=== PATIENT | female | born 1945 | race Caucasian/White ===

== ENCOUNTER → 2018-02-25 | Outpatient (CLI) | payer OTHER ==
[~2018-02-25] MED LIST: ASPI1CHW4 CHEW; AZOP1SUS EACH EYE; ESTR0.5T PO; HYDR-3583 PO; MOBI15TA PO; TIMO0.255 EACH EYE; TRAM50TA PO; VITA2000 PO; WALKER/ADULT/FO1 MIS; XARE10TA PO; ZOLP5TAB3 PO
== END ==
LOC: CPRE 11:16
PROVIDERS: ATTEND Orthopaedic Surgery Orthopaedic Trauma
DX: M79.609 Pain in unspecified limb (principal); Z96.60 Presence of unspecified orthopedic joint implant; Z79.01 Long term (current) use of anticoagulants

== ENCOUNTER 2018-03-07 05:07 | Inpatient (IN) | payer OTHER, MEDICARE ==
[~2018-03-07] VITALS: Ht 170.2 cm; Wt 80.0 kg
[~2018-03-07 05:07] MED LIST changes: -ASPI1CHW4 CHEW; -ESTR0.5T PO; -HYDR-3583 PO; -TIMO0.255 EACH EYE; -WALKER/ADULT/FO1 MIS; -XARE10TA PO; -ZOLP5TAB3 PO
[2018-03-07] MEDS ORDERED: DEXAMETHASONE SOD PHOS 20 MG/5 ML VIAL IV PUSH ONE (05:30)
[2018-03-07] MEDS ORDERED: GABAPENTIN 300 MG CAP PO ONE (05:30)
[2018-03-07] MEDS ORDERED: LACTATED RINGER'S 1000 ML IV PRN (05:30)
[2018-03-07] MEDS ORDERED: VANCOMYCIN 1000 MG/NS 250 ML (for <70 kg) IV SCH ×2 (05:30)
[2018-03-07] MEDS ORDERED: POVIDONE IODINE 5% (ANTISEPSIS KIT) 4 APPLICATIONS EACH NARE PRN (05:30)
[2018-03-07] MEDS ORDERED: ONDANSETRON HCL 4 MG/2 ML VIAL IV PUSH ONE (05:30)
[2018-03-07] MEDS ORDERED: BUPIVACAINE-EPI PF 0.25% INJ 20 ML, BUPIVACAINE LIPOSO PF 1.3% INJ 20 ML in SODIUM CHLO... P-ARTICULR SCH (05:30)
[2018-03-07] MEDS ORDERED: ceFAZolin 2 GM PREMIX 50 ML IV SCH (05:30)
[2018-03-07] MEDS ORDERED: METOPROLOL TARTRATE 25 MG TAB PO PRN (05:30)
[2018-03-07] MEDS ORDERED: CHLORHEXIDINE GLUCONATE 4% SOLN 120 ML BTL TOPICAL SCH (05:30)
[2018-03-07] MEDS ORDERED: FAMOTIDINE 20 MG/2 ML VIAL IV PUSH ONE (05:30)
[2018-03-07] MEDS ORDERED: CELECOXIB 200 MG CAP PO ONE (05:30)
[2018-03-07] MEDS ORDERED: SODIUM CHLORID 0.9% 500 ML IV PRN (05:30)
[2018-03-07] MEDS ORDERED: TRANEXAMIC ACID IV SCH (05:30)
[2018-03-07] MEDS ORDERED: CHLORHEXIDINE GLUCONATE 2 % 1 PACK (2 CLOTHS) TOPICAL PRN (05:30)
[2018-03-07] MEDS ORDERED: SODIUM CHLORIDE 0.9% IV SCH (05:30)
[2018-03-07] MEDS ORDERED: ACETAMINOPHEN 1000 MG/100 ML 100 ML IV ONE (05:30)
[2018-03-07] MEDS ORDERED: MIDAZOLAM HCL 2 MG/2 ML VIAL ONE (06:22)
[2018-03-07] MEDS ORDERED: ACETAMINOPHEN 1000 MG/100 ML 0 ML IV ONE (06:22)
[2018-03-07] MEDS ORDERED: FAMOTIDINE 20 MG/2 ML VIAL ONE (06:22)
[2018-03-07] MEDS ORDERED: APREPITANT 40 MG CAP ONE (06:35)
[2018-03-07] MEDS ORDERED: KETAMINE HCL 50 MG/5 ML SYRINGE ONE (06:39)
[2018-03-07] MEDS ORDERED: GENTAMICIN SULFATE 80 MG/2 ML VIAL ONE (06:53)
[2018-03-07] MEDS ORDERED: TOBRAMYCIN 1200 MG VIAL (for ortho/sterile core) OTHER ONE (08:31)
[2018-03-07] MEDS ORDERED: VANCOMYCIN HCL 1000 MG VIAL ONE (08:32)
[2018-03-07] MEDS ORDERED: HYDROmorphone HCL PF 0.5 MG/0.5 ML SYRINGE IV PUSH PRN (09:30)
[2018-03-07] MEDS ORDERED: diphenhydrAMINE HCL 25 MG CAP PO PRN (09:30)
[2018-03-07] MEDS ORDERED: NALOXONE HCL 0.4 MG/ML AMP IV PUSH PRN (09:30)
[2018-03-07] MEDS ORDERED: Post-op Orders (for Pharmacy) XX ONE (09:30)
[2018-03-07] MEDS ORDERED: ACETAMINOPHEN/HYDROcodone 325 MG/7.5 MG TAB PO PRN (09:30)
--- NOTE | 2018-03-07 09:33 | PD.OP ---
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 My P.A. presence was necessary throughout this case for the manipulation and positioning of the surgical extremity. My P.A. was assisting me throughout the duration of this procedure. The skill set of a physician wet process miller head assistant was medically necessary to complete this procedure. During the surgical case the rn surgical was working at the back table and the physician wet process miller head assistant was directly assisting me. Operation and Findings: Plan of activity: 50% weightbearing IMPLANTS USED DePuy size 58 revision cup and a 36+5 metal head. DETAILS OF PROCEDURE: This patient has a long history of hip pain. Patient previously had a revision of her left acetabular cup. The cup appeared to be loose again. Patient was having severe pain. The patient wished to proceed with surgery and informed consent was obtained. Operative site was marked. I discussed both posterior approach and anterior approach with patient decision was made for posterior approach. Patient was brought to OR and placed on OR table. IV sedation and general anesthesia was administered by anesthesiologist. Patient was positioned lateral on the operating room table. IV antibiotics were held until after cultures were obtained. Time-out procedure was performed. The operative hip and leg were prepped with alcohol followed by Hibiclens and draped in the usual sterile fashion. Clean Air Suite was used for this procedure. The procedure began with a 8-inch incision over the posterolateral thigh. Incision was made through previous scar.. Subcutaneous tissue was dissected with Bovie. The fascia of the iliotibial band was incised. Gluteus muscle was split in line with fibers. Charnley retractor was placed. There was dense scar tissue from 2 prior surgeries. Piriformis and external rotator muscles were identified and then released from the posterior femur. The hip capsule was incised and sutures were placed to help retract the capsule. At this point the total hip components were visualized. The hip was now dislocated. Using a bone tamp the head was removed. The stem was evaluated and appeared to be stable. At this point the liner was removed from the acetabular shell using an osteotome. Using appropriate screwdrivers the 2 screws were now removed. The acetabular shell was loose. Using curved osteotomes the acetabular shell was removed. At this point attention was turned to placement of the acetabular shell. The patient had relatively good peripheral bone stock around the acetabulum. The anterior and posterior gilbert were very thin. A small hole was drilled into the medial wall to measure the depth of bone. At this point the acetabulum was gently reamed with a size 56 reamer. The acetabulum was then gently reamed with a 57 and 58 reamer. A 58 trial cup was now placed. Appropriate anteversion was confirmed. The cup had stable fit. Because of the thin anterior and posterior gilbert, I did not feel that it was possible to go to a larger size. At this point a size 58 revision cup was open. The cup was impacted in appropriate version. The cup was stable upon impaction. 3 dome screws were now placed. 2 additional peripheral screws were placed. At this point a +4, 10 acetabular liner was opened. The liner was impacted into the shell. A trial head was now placed. A trial 36+5 head was found to be appropriate. The hip was found to have excellent stability with good range of motion. The leg lengths were measured under clinically and found to be equal compared to preoperatively. The trial femoral head was removed and replaced with a 36+5 metal head. The hip was again reduced. The wound was thoroughly irrigated. Hip capsule, external rotators, and iliotibial band was closed with #1 Vicryl. A drain was placed deep into the wound. Subcutaneous tissue was closed with 3-0 Vicryl and the skin was closed with paul and Dermabond skin closure. The capsule layers were injected with a mixture of saline and bupivicaine. Dressings were applied. The patient was transferred to Recovery Room in stable condition. Pritesh Hi MD March 07, 2018 09:33
[2018-03-07] MEDS ORDERED: *HYDROmorphone PF 0.5 MG/0.5 ML PERIprocedure ONLY ONE ×3 (10:04→11:46)
[2018-03-07] MEDS ORDERED: DO NOT ADM ANY ANTICOAGULANT DRUGS PRN (10:30)
--- NOTE | 2018-03-07 12:11 | RADRPT ---
EXAM DATE: 03/07/2018 11:59 AM EDT AGE/SEX: 72 years / Female INDICATIONS: Post op hip surgery CLINICAL DATA: This is the patient's subsequent encounter. Patient reports that signs and symptoms h ave been present for 1 day and indicates a pain score of Nonresponsive. MEDICAL/SURGICAL HISTORY: None. None. COMPARISON: No prior exams available for comparison. FINDINGS: Status post placement of a left hip prosthesis. There is good position and alignment of the prosthesi s. The bony structures are grossly intact. CONCLUSION: Good position and alignment on this postoperative study. Electronically signed by: Robert Tucker MD 03/07/2018 12:09 PM EDT
[2018-03-07] MEDS: ACETAMINOPHEN/HYDROcodone 325 MG/10 MG TAB PO PRN ×2 (12:12→15:48)
[2018-03-07] MEDS: ceFAZolin 2 GM PREMIX 50 ML IV SCH ×2 (13:04→20:46)
--- NOTE | 2018-03-07 14:44 | RADRPT ---
EXAM DATE: 03/07/2018 2:38 PM EDT AGE/SEX: 72 years / Female INDICATIONS: Left posterior hip revision. CLINICAL DATA: This is the patient's initial encounter. Patient reports that signs and symptoms have been present for 1 day and indicates a pain score of Nonresponsive. MEDICAL/SURGICAL HISTORY: Non-responsive. Non-responsive. COMPARISON: [facility], CT HIP W/O CONTRAST, LEFT, 01/17/2018. . FINDINGS: Single view of the left hip demonstrates a prosthesis with acetabular and femoral components. The pro sthetic components are well seated in satisfactory alignment. The bones remain intact without evidenc e of acute fracture. CONCLUSION: Satisfactory postoperative appearance of the left hip following revision of a left hip prosthesis. Electronically signed by: Leonard Lorenzo MD 03/07/2018 2:43 PM EDT
[2018-03-07] MEDS: ONDANSETRON HCL 4 MG/2 ML VIAL IVP PRN (15:48)
[2018-03-07 16:00] VITALS: BP 142/81; PULSE 73; RESP 18; TEMP 97.4; O2SAT 100
[2018-03-07] MEDS ORDERED: ePHEDrine/NS 25 MG/5 ML SYRINGE IV ONE (19:04)
[2018-03-07] MEDS ORDERED: GLYCOPYRROLATE 1 MG/5 ML SYRINGE IV PUSH ONE (19:04)
[2018-03-07] MEDS ORDERED: LACTATED RINGER'S 1000 ML INJ 1,000 ML IV ONE (19:04)
[2018-03-07] MEDS ORDERED: PROPOFOL 200 MG/20 ML AMP IV ONE (19:04)
[2018-03-07] MEDS ORDERED: PHENYLEPH/NS 1000 MCG/10 ML SYR IV ONE (19:04)
[2018-03-07] MEDS ORDERED: NEOSTIGMINE 5 MG/5 ML SYRINGE IV PUSH ONE (19:04)
[2018-03-07] MEDS ORDERED: ROCURONIUM INJ 50 MG/5 ML SYRINGE IV PUSH ONE (19:04)
[2018-03-07] MEDS ORDERED: LIDOCAINE HCL 1% PF 5 ML SYRINGE OTHER ONE (19:04)
[2018-03-07 19:19] VITALS: BP 124/60; PULSE 68; RESP 18; TEMP 97.6; O2SAT 96
[2018-03-07] MEDS: VANCOMYCIN INJ 1,000 MG in SODIUM CHLOR 0.9% 250 ML INJ 250 ML IV SCH (20:47)
[2018-03-07] MEDS ORDERED: ZOLP5TAB3 PO (20:54)
[2018-03-07 23:11] VITALS: BP 108/62; PULSE 83; RESP 18; TEMP 98.1; O2SAT 95
[2018-03-08] MEDS: ceFAZolin 2 GM PREMIX 50 ML IV SCH ×4 (02:56→21:03)
[2018-03-08] MEDS: ACETAMINOPHEN/HYDROcodone 325 MG/10 MG TAB PO PRN ×5 (04:00→21:02)
[2018-03-08 04:10] VITALS: BP 108/53; PULSE 67; RESP 17; TEMP 97.5; O2SAT 96
[2018-03-08 05:25] LABS: HEMATOCRIT 28.3 % (35.0-46.0); HEMOGLOBIN 9.5 GM/DL (11.6-15.3)
--- NOTE | 2018-03-08 06:47 | PD.ORT.PN ---
Subjective Subjective Remarks POD 1 s/p Revision left ALLAN doing well. pain controlled. no new complaints. out of bed with walker yesterday Objective Vitals Vital Signs Date Time Temp Pulse Resp B/P (MAP) Pulse Ox O2 Delivery O2 Flow Rate FiO2 03/08/18 04:10 97.5 67 17 108/53 (71) 96 03/07/18 23:11 98.1 83 18 108/62 (77) 95 03/07/18 19:19 97.6 68 18 124/60 (81) 96 03/07/18 18:54 Room Air 03/07/18 16:00 97.4 73 18 142/81 (101) 100 03/07/18 12:00 63 16 117/69 (85) 99 Room Air 03/07/18 11:00 58 16 116/72 (87) 99 Room Air 03/07/18 10:45 65 16 114/56 (75) 96 Room Air 03/07/18 10:30 54 16 112/55 (74) 94 Room Air 03/07/18 10:15 51 16 104/57 (73) 95 Room Air 03/07/18 10:00 58 16 118/58 (78) 95 Room Air 03/07/18 09:48 97.7 72 16 129/71 (90) 100 Simple Mask 8 I/O 03/07/18 03/07/18 03/07/18 03/08/18 03/08/18 03/08/18 07:00 15:00 23:00 07:00 15:00 23:00 Intake Total 1660 ml 870 ml Output Total 650 ml 1750 ml Balance 1010 ml -880 ml Intake Oral 60 ml 720 ml IV Total 150 ml Other 1600 ml Output Urine Total 400 ml 1750 ml Estimated Blood Loss 250 ml # Bowel Movements 0 Result Diagram: 03/08/18 0450 Imaging Last 24 hours Impressions Hip and Pelvis X-Ray 03/07/18 0921 Signed Impressions: CONCLUSION: Good position and alignment on this postoperative study. Objective Remarks LLE: dressings clean and dry. intact. +CKS. nvi distally Assessment & Plan Assessment and Plan 1) Left Revision ALLAN - POD 1 -50%WB -posterior hip precautions -CKS at all times -maintain dressing on hip unless saturated. plan for first dressing change on POD 7 -plan for home with [facility] on sat/sun pending progress -f/u with [facility] or [facility] in 2 weeks Troy Courtney PA/Chemistry Quality Control Analyst PA March 08, 2018 06:47
[2018-03-08] MEDS ORDERED: XARE10TA PO (06:50)
[2018-03-08] MEDS ORDERED: WALKER/ADULT/FO1 MIS (06:50)
[2018-03-08] MEDS ORDERED: HYDR-3583 PO (06:50)
[2018-03-08] MEDS ORDERED: ASPI1CHW4 CHEW (06:50)
[2018-03-08] MEDS: CHOLECALCIFEROL (VIT D3) 1000 UNIT TAB PO SCH (07:43)
[2018-03-08] MEDS: ENOXAPARIN SODIUM 30 MG/0.3 ML SYRINGE SQ SCH ×2 (07:43→21:02)
[2018-03-08 08:00] VITALS: BP 133/58; PULSE 66; RESP 18; TEMP 98.2; O2SAT 99
[2018-03-08] MEDS ORDERED: BRINZOLAMIDE OPTH EACH EYE SCH (09:00)
[2018-03-08] MEDS: VANCOMYCIN INJ 1,000 MG in SODIUM CHLOR 0.9% 250 ML INJ 250 ML IV SCH (09:29)
[2018-03-08 11:50] VITALS: BP 99/57; PULSE 60; RESP 18; TEMP 97.9; O2SAT 96
[2018-03-08 16:22] VITALS: BP 109/56; PULSE 57; RESP 18; TEMP 97.2; O2SAT 94
[2018-03-08] MEDS: DOCUSATE SODIUM 100 MG CAP PO SCH (21:02)
[2018-03-08 23:16] VITALS: BP 119/58; PULSE 64; RESP 18; TEMP 98.3; O2SAT 94
[2018-03-08 23:35] VITALS: BP 131/60; PULSE 66; RESP 18; TEMP 98.3; O2SAT 95
[2018-03-09] MEDS: ACETAMINOPHEN/HYDROcodone 325 MG/10 MG TAB PO PRN ×6 (01:16→21:01)
--- NOTE | 2018-03-09 07:34 | PD.ORT.PN ---
Subjective Subjective Remarks pt complains of post op hip soreness Objective Vitals Vital Signs Date Time Temp Pulse Resp B/P (MAP) Pulse Ox O2 Delivery O2 Flow Rate FiO2 03/08/18 23:35 98.3 66 18 131/60 (83) 95 03/08/18 23:16 98.3 64 18 119/58 (78) 94 03/08/18 16:22 97.2 57 18 109/56 (73) 94 03/08/18 11:50 97.9 60 18 99/57 (71) 96 03/08/18 09:47 Room Air 03/08/18 08:00 98.2 66 18 133/58 (83) 99 I/O 03/08/18 03/08/18 03/08/18 03/09/18 03/09/18 03/09/18 07:00 15:00 23:00 07:00 15:00 23:00 Intake Total 870 ml 490 ml 890 ml Output Total 1750 ml 400 ml Balance -880 ml 490 ml 490 ml Intake Oral 720 ml 840 ml IV Total 150 ml 490 ml 50 ml Output Urine Total 1750 ml 400 ml # Bowel Movements 0 Result Diagram: 03/08/18 0450 Imaging Last 24 hours Impressions Hip and Pelvis X-Ray 03/07/18 0921 Signed Impressions: CONCLUSION: Good position and alignment on this postoperative study. Objective Remarks LLE: dressings clean and dry. intact. +CKS. nvi distally Assessment & Plan Assessment and Plan 1) Left Revision ALLAN - POD #2 -50%WB -posterior hip precautions -CKS at all times -maintain dressing on hip unless saturated. plan for first dressing change on POD 7 -patient would like to go to rehab instead of home, plan for discharge for [facility] today -f/u with [facility] or [facility] in 2 weeks Johnny Dubose MD March 09, 2018 07:34
[2018-03-09 08:00] VITALS: BP 106/57; PULSE 61; RESP 18; TEMP 98.1; O2SAT 95
[2018-03-09] MEDS: CHOLECALCIFEROL (VIT D3) 1000 UNIT TAB PO SCH (08:18)
[2018-03-09] MEDS: DOCUSATE SODIUM 100 MG CAP PO SCH ×2 (08:18→20:35)
[2018-03-09] MEDS: ENOXAPARIN SODIUM 30 MG/0.3 ML SYRINGE SQ SCH ×2 (08:19→20:36)
[2018-03-09 12:00] VITALS: BP_SYST 120; BP_SYST 129; BP_DIAS 62; PULSE 72; RESP 16; TEMP 98.2; O2SAT 98
[2018-03-09 15:35] VITALS: BP 120/62
[2018-03-09 16:00] VITALS: BP 136/65; PULSE 75; RESP 16; TEMP 98.4; O2SAT 96
[2018-03-09 19:45] VITALS: BP 140/65; PULSE 77; RESP 17; TEMP 98.6; O2SAT 96
[2018-03-10] MEDS: ACETAMINOPHEN/HYDROcodone 325 MG/10 MG TAB PO PRN ×4 (00:05→17:20)
[2018-03-10 00:25] VITALS: BP 108/59; PULSE 72; RESP 16; TEMP 97.6; O2SAT 94
[2018-03-10 08:00] VITALS: BP 127/60; PULSE 66; RESP 17; TEMP 97.9; O2SAT 94
[2018-03-10] MEDS: ENOXAPARIN SODIUM 30 MG/0.3 ML SYRINGE SQ SCH (08:17)
[2018-03-10] MEDS: DOCUSATE SODIUM 100 MG CAP PO SCH (08:17)
[2018-03-10] MEDS: CHOLECALCIFEROL (VIT D3) 1000 UNIT TAB PO SCH (08:17)
--- NOTE | 2018-03-10 08:25 | PD.ORT.PN ---
Subjective Subjective Remarks pt is doing better, post-op soreness improving Objective Vitals Vital Signs Date Time Temp Pulse Resp B/P (MAP) Pulse Ox O2 Delivery O2 Flow Rate FiO2 03/10/18 00:25 97.6 72 16 108/59 (75) 94 03/09/18 19:45 98.6 77 17 140/65 (90) 96 03/09/18 18:04 03/09/18 16:00 98.4 75 16 136/65 (88) 96 03/09/18 15:35 120/62 (81) 03/09/18 12:00 98.2 72 16 120/62 (81) 98 03/09/18 08:24 Room Air I/O 03/09/18 03/09/18 03/09/18 03/10/18 03/10/18 03/10/18 06:59 14:59 22:59 06:59 14:59 22:59 Intake Total 0 ml 600 ml 360 ml Balance 0 ml 600 ml 360 ml Intake Oral 600 ml 360 ml IV Total 0 ml 0 ml # Voids 4 3 # Bowel Movements 0 Result Diagram: 03/08/18 0450 Imaging Last 24 hours Impressions Hip and Pelvis X-Ray 03/07/18 0921 Signed Impressions: CONCLUSION: Good position and alignment on this postoperative study. Objective Remarks seen and examined by Dr. Johnny FUCHS: dressings clean and dry. intact. +CKS. nvi distally Assessment & Plan Assessment and Plan 1) Left Revision ALLAN - POD #3 -50%WB -posterior hip precautions -CKS at all times -maintain dressing on hip unless saturated. plan for first dressing change on POD #7 -discharge to [facility] today, orthopedically stable -f/u with [facility] or [facility] in 2 weeks Neli Kendall March 10, 2018 08:25
[2018-03-10] MEDS ORDERED: MAGNESIUM HYDROXIDE SUSP 30 ML CUP PO PRN (09:30)
[2018-03-10] MEDS ORDERED: LACTULOSE SYRUP 20 GM/30 ML CUP PO PRN (09:45)
[2018-03-10] MEDS: ONDANSETRON HCL 4 MG/2 ML VIAL IVP PRN (11:06)
[2018-03-10 12:00] VITALS: BP 109/58; PULSE 74; RESP 17; TEMP 97.6; O2SAT 95
[2018-03-10] MEDS ORDERED: BISACODYL 10 MG SUPP RECTAL PRN (14:15)
[2018-03-10 16:00] VITALS: BP 131/64; PULSE 77; RESP 17; TEMP 98.9; O2SAT 95
[2018-03-10 18:29] VITALS: RESP 18
== END 2018-03-10 19:05 | DRG 468 ==
LOC: HSDI 05:07 → EDUNIT# 07:00 → N06B 12:05
PROVIDERS: ADMIT Orthopaedic Surgery Orthopaedic Trauma; ATTEND Orthopaedic Surgery Orthopaedic Trauma
PROC: 0SPB0JZ Removal of Synthetic Substitute from Left Hip Joint, Open Approach (ICD-10-PCS; 2018-03-07)
PROC: 0SRB0JA Replacement of Left Hip Joint with Synthetic Substitute, Uncemented, Open Approach (ICD-10-PCS; principal; 2018-03-07 07:06)
DX: T84.091A Other mechanical complication of internal left hip prosthesis, initial encounter (principal); F17.210 Nicotine dependence, cigarettes, uncomplicated; Y79.2 Prosthetic and other implants, materials and accessory orthopedic devices associated with adverse incidents
CPT/HCPCS: 73502; 76000; 85014; 85018; 86850; 86900; 86901; 87015; 87070; 87102; 87116; 87205; 87206; 88305; 88311; 88331; C1776; C9290; J0131; J0690; J1100; J1170; J1580; J1650; J2250; J2370; J2405; J2710; J3010; J3370; J7050; J7120; J8501; L1830